=== PATIENT | male | born 1975 | race Caucasian/White ===

== ENCOUNTER 2017-03-11 15:59 | Emergency (ER) | payer OTHER ==
[~2017-03-11] VITALS: Ht 175.3 cm; Wt 81.8 kg
[2017-03-11 16:03] VITALS: BP 126/87
[2017-03-11] MEDS ORDERED: DIPH,PERTUSS(ACELL),TET VAC/PF 0.5 ML IM-VACC ONE ×2 (16:29→16:30)
[2017-03-11] MEDS ORDERED: L.E.T SOLUTION TP ONE ×2 (16:29→16:30)
[2017-03-11] MEDS ORDERED: LIDOCAINE 1%, 20ML SQ ONE (17:00)
[2017-03-11] MEDS ORDERED: LIDOCAINE 1%, 20ML ONE (17:01)
[2017-03-11] MEDS ORDERED: ACETAMINOPHEN 325 MG TABLET PO ONE (17:30)
[2017-03-11] MEDS ORDERED: IBUPROFEN 200 MG TABLET PO ONE (17:30)
[2017-03-11] MEDS ORDERED: ACETAMINOPHEN 325 MG TABLET ONE (17:54)
[2017-03-11] MEDS ORDERED: IBUPROFEN 200 MG TABLET ONE (17:55)
[2017-03-11] MEDS ORDERED: BACITRACIN ZINC OINT 500U/GM, 0.9 GM ONE (18:07)
== END 2017-03-11 19:13 | disposition home or self-care (01) ==
LOC: ED 19:07
DX: S81.011A Laceration without foreign body, right knee, initial encounter (principal); S50.11XA Contusion of right forearm, initial encounter; S70.11XA Contusion of right thigh, initial encounter; V19.9XXA Pedal cyclist (driver) (passenger) injured in unspecified traffic accident, initial encounter; Y93.55 Activity, bike riding; Y92.488 Other paved roadways as the place of occurrence of the external cause; Y99.8 Other external cause status
CPT/HCPCS: 12031; 90471; 90715; 99284; J3490